=== PATIENT | female | born 1990 | race Hispanic/Latino ===

== ENCOUNTER 2019-04-23 12:13 | Inpatient (IN) | payer MEDICAID, OTHER ==
[~2019-04-23] VITALS: Ht 162.6 cm; Wt 86.8 kg
[2019-04-23] VITALS (20 sets, daily range): BP systolic 83–143; BP diastolic 39–83
[2019-04-23] MEDS ORDERED: CEFTRIAXONE SODIUM 2 GM VIAL ONE (13:04)
[2019-04-23] MEDS ORDERED: ONDANSETRON HCL 4 MG/2 ML VIAL ONE (13:05)
[2019-04-23 13:06] LABS: ABG BASE EXCESS -5.4 mmol/L (-2.0-3.0); ABG HCO3 15.5 mmol/L (21.0-28.0); ABG OXYGEN SATURATION 97.1 % (95.0-99.0); ABG PCO2 21 mmHg (32-45)
[2019-04-23] MEDS ORDERED: SODIUM CHLORIDE 0.9% 1000ML 3,000 ML IV ONE (13:06)
[2019-04-23 13:35] LABS: BASOPHILS % (AUTO) 0.5 % (0.0-5.0); EOSINOPHILS % (AUTO) 2.3 % (0.0-8.0); HEMATOCRIT 46.2 % (36-48); LYMPHOCYTES % (AUTO) 3.8 % (21.0-51.0); MEAN CORPUSCULAR HEMOGLOBIN 28.5 pg (27.0-33.0); MONOCYTES % (AUTO) 5.3 % (3.0-13.0); NEUTROPHILS % (AUTO) 87.3 % (40.0-77.0); PLATELET COUNT (AUTO) 118 K/uL (130-400); RED BLOOD CELL COUNT(AUTO) 5.19 MIL/uL (4.00-5.50); WHITE BLOOD COUNT (AUTO) 14.1 K/uL (4.8-10.8)
[2019-04-23 13:38] LABS: BILIRUBIN,URINE SMALL (NEGATIVE); COLOR,URINE YELLOW (YELLOW); GLUCOSE, URINE (UA) >=1000 mg/dL (NEGATIVE); KETONES,URINE >=80 mg/dL (NEGATIVE); LEUKOCYTE ESTERASE ,URINE NEGATIVE (NEGATIVE); NITRATE,URINE POSITIVE (NEGATIVE); OCCULT BLOOD,URINE TRACE-INTACT (NEGATIVE); PH,URINE 5.5 (5.0-8.0); PROTEIN,URINE 30 mg/dL (NEGATIVE); UROBILINOGEN,URINE 0.2 mg/dL (0.2-1.0)
[2019-04-23 13:45] LABS: CARBON DIOXIDE 20 mmol/L (21-32); CHLORIDE 94 mmol/L (101-111); CREATININE 1.3 mg/dL (0.5-1.5); GLOMERULAR FILTR. RATE CALC 51 mL/min (>60); POTASSIUM 3.9 mmol/L (3.5-5.1); SODIUM SERUM 134 mmol/L (136-145); UREA NITROGEN, BLOOD 13 mg/dL (7-18)
[2019-04-23 13:52] LABS: INR 1.06 (0.85-1.15); PARTIAL THROMBOPLASTIN TIME 34.3 SEC (26.3-35.5); PROTHROMBIN TIME 11.1 SEC (9.6-11.6)
[2019-04-23 13:54] LABS: ALANINE AMINOTRANSFERASE 29 U/L (12-78); ASPARTATE AMINOTRANSFERASE 17 U/L (10-37); BILIRUBIN,TOTAL 1.2 mg/dL (0.2-1.0); CREATINE KINASE, TOTAL 17 U/L (21-232); MYOGLOBIN 23 ng/mL (10-92); TOTAL PROTEIN, SERUM 7.6 g/dL (6.0-8.3); TROPONIN I < 0.04 ng/mL (0.00-0.06)
[2019-04-23 13:56] LABS: APPEARANCE,URINE HAZY (CLEAR)
[2019-04-23 14:00] LABS: AMORPHOUS SEDIMENT,UR Few /LPF (None Seen); BACTERIA,URINE Few /HPF (None Seen); RBC,URINE 0-1 /HPF (0-1); SQUAMOUS EPITHELIAL CELL,UR Rare /HPF (0-2)
[2019-04-23 14:05] LABS: ALBUMIN 2.6 g/dL (3.5-5.0)
[2019-04-23 14:12] LABS: GLUCOSE,RANDOM 435 mg/dL (70-105)
[2019-04-23] MEDS ORDERED: MORPHINE SULFATE 2 MG/ML 1ML SYG ONE (14:12)
[2019-04-23] MEDS ORDERED: ACETAMINOPHEN 650 MG SUPPOSITORY RC ONE (14:19)
[2019-04-23] MEDS ORDERED: SODIUM CHLORIDE 0.9% 1000ML 1,000 ML IV SCH (14:36)
[2019-04-23] MEDS ORDERED: LACTULOSE 20 GM/30 ML UDCUP PO PRN ×2 (14:45→19:00)
[2019-04-23] MEDS ORDERED: CEFTRIAXONE SODIUM 1 GM IV SCH (14:45)
[2019-04-23] MEDS ORDERED: ONDANSETRON HCL 4 MG/2 ML VIAL IV PRN (14:45)
[2019-04-23 17:13] LABS: AMPHET/METH SCREEN,URINE NEGATIVE (NEGATIVE); BARBITURATE SCREEN, URINE NEGATIVE (NEGATIVE); BENZODIAZEPINES SCREEN,URINE POSITIVE (NEGATIVE); CANNABINOID SCREEN,URINE POSITIVE (NEGATIVE); COCAINE SCREEN,URINE NEGATIVE (NEGATIVE); OPIATE SCREEN,URINE NEGATIVE (NEGATIVE); PHENCYCLIDINE SCREEN,URINE NEGATIVE (NEGATIVE)
--- NOTE | 2019-04-23 17:45 | NUR ---
RECEIVED PATIENT FROM ER AND PT HAS BEEN C/O PAIN AND HAS BEEN ADVISED OF ORDERS TO BE OBTAINED FROM ICU CONSULT DOCTOR AND DR. GARCIA HAS BEEN ADVISED OF CONSULT.
[2019-04-23] MEDS ORDERED: ACETAMINOPHEN 325 MG TAB PO PRN (19:00)
[2019-04-23] MEDS ORDERED: LABETALOL 20 MG/4 ML DISP.SYRIN IV PRN (19:00)
[2019-04-23] MEDS ORDERED: ZOLPIDEM TARTRATE 5 MG TAB PO PRN (19:00)
[2019-04-23] MEDS ORDERED: HYDRALAZINE HCL 20 MG/ML VIAL IV PRN (19:00)
--- NOTE | 2019-04-23 19:30 | NUR ---
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
[2019-04-23] MEDS: SODIUM CHLORIDE 0.9% 1000ML 1,000 ML IV SCH ×2 (19:36→20:00)
[2019-04-23] MEDS: MORPHINE SULFATE 2 MG/ML 1ML SYG IVP PRN (19:59)
[2019-04-23] MEDS: FAMOTIDINE/PF 20 MG/2 ML VIAL IV SCH (20:02)
[2019-04-23] MEDS: ACETAMINOPHEN 325 MG TAB PO PRN (20:05)
[2019-04-23] MEDS: INSULIN REGULAR, HUMAN 3ML 100 UNIT in SODIUM CHLORIDE 0.9% 99 ML IV PRN ×2 (20:10)
[2019-04-23 20:46] LABS: ALBUMIN 2.2 g/dL (3.5-5.0); BILIRUBIN,TOTAL 0.7 mg/dL (0.2-1.0); MAGNESIUM 1.9 mg/dL (1.80-2.40); POTASSIUM 3.8 mmol/L (3.5-5.1); TOTAL PROTEIN, SERUM 6.5 g/dL (6.0-8.3)
[2019-04-24] VITALS (24 sets, daily range): BP systolic 92–138; BP diastolic 39–77
[2019-04-24] MEDS: DEXTROSE 5 %-0.45 % NACL 1,000 ML IV PRN ×3 (00:25→19:05)
[2019-04-24] MEDS: SODIUM CHLORIDE 0.9% 1000ML 1,000 ML IV SCH ×2 (00:36→05:36)
[2019-04-24] MEDS: MORPHINE SULFATE 2 MG/ML 1ML SYG IVP PRN ×5 (01:38→19:53)
[2019-04-24] MEDS: ACETAMINOPHEN 325 MG TAB PO PRN ×3 (02:20→19:52)
--- NOTE | 2019-04-24 02:32 | NUR ---
UPDATE 0200 RECEIVED CALL OF BLOOD CULTURES POSITIVE X2 GRAM NEG [facility] ENVIRONMENTAL DEPARTMENT MANAGER JEREMI ANGELO NOTIFIED OF BLOOD CULTURE RESULTS, LAB RESULTS, PT CONDITION, MEDS RECEIVED, ANTIBIOTIC CURRENTLY ON, V/S WITH PT HAVING FEVERS. NEW ORDERS RECEIVED AND CARRIED OUT.
[2019-04-24 04:18] LABS: BASOPHILS % (AUTO) 0.1 % (0.0-5.0); EOSINOPHILS % (AUTO) 2.8 % (0.0-8.0); HEMATOCRIT 33.9 % (36-48); LYMPHOCYTES % (AUTO) 4.8 % (21.0-51.0); MEAN CORPUSCULAR HEMOGLOBIN 28.8 pg (27.0-33.0); MEAN CORPUSCULAR HGB CONC 32.7 g/dL (32.0-36.0); MEAN CORPUSCULAR VOLUME 87.8 fL (79-99); MONOCYTES % (AUTO) 9.1 % (3.0-13.0); NEUTROPHILS % (AUTO) 82.5 % (40.0-77.0); PLATELET COUNT (AUTO) 84 K/uL (130-400); RED BLOOD CELL COUNT(AUTO) 3.86 MIL/uL (4.00-5.50); RED CELL DISTRIBUTION WIDTH 12.2 % (11.0-15.5); WHITE BLOOD COUNT (AUTO) 8.1 K/uL (4.8-10.8)
[2019-04-24 04:24] LABS: HEMOGLOBIN A1C 11.6 % (4.0-6.0)
[2019-04-24] MEDS: ZOSYN 3.375GM+NS 50ML 50 ML IV SCH ×3 (04:34→19:05)
[2019-04-24 04:43] LABS: ALBUMIN 1.9 g/dL (3.5-5.0); BILIRUBIN,TOTAL 0.7 mg/dL (0.2-1.0); CREATININE 0.9 mg/dL (0.5-1.5); MAGNESIUM 2.8 mg/dL (1.80-2.40); POTASSIUM 3.3 mmol/L (3.5-5.1); THYROID STIMULATING HORMONE 0.6 uIU/mL (0.36-3.74); TOTAL PROTEIN, SERUM 5.9 g/dL (6.0-8.3)
[2019-04-24] MEDS ORDERED: DEXTROSE 10%-WATER 1,000 ML IV SCH (08:15)
[2019-04-24 08:28] LABS: BILIRUBIN,TOTAL 0.6 mg/dL (0.2-1.0); CREATININE 0.9 mg/dL (0.5-1.5); MAGNESIUM 2.1 mg/dL (1.80-2.40); POTASSIUM 3.5 mmol/L (3.5-5.1); TOTAL PROTEIN, SERUM 6.3 g/dL (6.0-8.3)
[2019-04-24] MEDS ORDERED: POTASSIUM CHLORIDE 20MEQ/100ML 100 ML IV PRN (08:30)
[2019-04-24] MEDS ORDERED: POTASSIUM CHLORIDE 20 MEQ ERTAB PO PRN (08:30)
[2019-04-24 08:46] LABS: ABG BASE EXCESS -2.1 mmol/L (-2.0-3.0); ABG HCO3 20.1 mmol/L (21.0-28.0); ABG OXYGEN SATURATION 91.9 % (95.0-99.0); ABG PCO2 29 mmHg (32-45)
[2019-04-24] MEDS: ONDANSETRON HCL 4 MG/2 ML VIAL IVP PRN ×2 (08:57→16:22)
[2019-04-24] MEDS: FAMOTIDINE/PF 20 MG/2 ML VIAL IV SCH ×2 (09:31→19:51)
[2019-04-24] MEDS: POTASSIUM CHLORIDE 10% ELIXIR 20 MEQ/15 ML UDCUP PO PRN ×4 (10:16→16:22)
[2019-04-24] MEDS: KETOROLAC TROMETHAMINE 15MG/ML IV PRN ×2 (10:16→16:23)
[2019-04-24 14:25] LABS: ALBUMIN 1.8 g/dL (3.5-5.0); BILIRUBIN,TOTAL 0.8 mg/dL (0.2-1.0); CREATININE 0.9 mg/dL (0.5-1.5); MAGNESIUM 2.2 mg/dL (1.80-2.40); POTASSIUM 3.5 mmol/L (3.5-5.1); TOTAL PROTEIN, SERUM 5.7 g/dL (6.0-8.3)
--- NOTE | 2019-04-24 16:03 | NUR ---
DC PLAN VISITED WITH PATIENT. PATIENT LIVES WITH CHILDREN 9-5 -1. ASKED WHO THEY WERE STAYING WITH [facility]. PATIENT HAS NO SERVICES OR DME'S. FEELS SAFE TO RETURN HOME. SAYS SHE GOES TO [facility] FOR MEDICAL NEEDS. Addendum: 04/24/19 at 1607 by YULIYA LAGOS RN CM Amended: Links added.
[2019-04-24] MEDS: INSULIN REGULAR, HUMAN 3ML 100 UNIT in SODIUM CHLORIDE 0.9% 99 ML IV PRN ×2 (20:39)
[2019-04-24 20:42] LABS: ALBUMIN 2.1 g/dL (3.5-5.0); BILIRUBIN,TOTAL 0.9 mg/dL (0.2-1.0); CREATININE 0.9 mg/dL (0.5-1.5); MAGNESIUM 2.3 mg/dL (1.80-2.40); POTASSIUM 4.1 mmol/L (3.5-5.1); TOTAL PROTEIN, SERUM 6.9 g/dL (6.0-8.3)
[2019-04-24] MEDS ORDERED: SODIUM CHLORIDE 0.9% 1000ML 1,000 ML IV SCH (22:17)
[2019-04-25] VITALS (17 sets, daily range): BP systolic 106–150; BP diastolic 45–90
[2019-04-25] MEDS: MORPHINE SULFATE 2 MG/ML 1ML SYG IVP PRN (01:34)
[2019-04-25] MEDS: ZOSYN 3.375GM+NS 50ML 50 ML IV SCH ×3 (03:18→18:01)
[2019-04-25 03:33] LABS: BASOPHILS % (AUTO) 0.2 % (0.0-5.0); EOSINOPHILS % (AUTO) 1.2 % (0.0-8.0); HEMATOCRIT 28.9 % (36-48); LYMPHOCYTES % (AUTO) 8.1 % (21.0-51.0); MEAN CORPUSCULAR HGB CONC 33.6 g/dL (32.0-36.0); MEAN CORPUSCULAR VOLUME 86.5 fL (79-99); MONOCYTES % (AUTO) 8.1 % (3.0-13.0); NEUTROPHILS % (AUTO) 80.5 % (40.0-77.0); PLATELET COUNT (AUTO) 63 K/uL (130-400); RED BLOOD CELL COUNT(AUTO) 3.34 MIL/uL (4.00-5.50); RED CELL DISTRIBUTION WIDTH 12.1 % (11.0-15.5); WHITE BLOOD COUNT (AUTO) 5.7 K/uL (4.8-10.8)
[2019-04-25 03:48] LABS: ALBUMIN 1.6 g/dL (3.5-5.0); BILIRUBIN,TOTAL 0.8 mg/dL (0.2-1.0); CREATININE 0.8 mg/dL (0.5-1.5); PHOSPHORUS 0.6 mg/dL (2.5-4.9); TOTAL PROTEIN, SERUM 5.4 g/dL (6.0-8.3)
[2019-04-25] MEDS: LIDOCAINE HCL-MPF 1% 2ML VIAL IV PRN ×2 (04:02→05:23)
[2019-04-25] MEDS: POTASSIUM CHLORIDE 10MEQ/100ML 100 ML IV PRN ×2 (04:03→05:24)
[2019-04-25] MEDS: INSULIN LISPRO 100 UNIT/ML 3ML SQ SCH ×7 (07:30→21:00)
[2019-04-25] MEDS: POTASSIUM PHOSPHATE 30 MMOL in SODIUM CHLORIDE 0.9% 250 ML IV SCH ×2 (08:23→16:07)
[2019-04-25] MEDS: FAMOTIDINE/PF 20 MG/2 ML VIAL IV SCH ×2 (08:23→21:07)
[2019-04-25] MEDS: NEUTRA-PHOS PACKET 1 EACH PO SCH ×2 (08:23→21:08)
[2019-04-25] MEDS: KETOROLAC TROMETHAMINE 15MG/ML IV PRN ×3 (08:43→21:08)
[2019-04-25] MEDS: ONDANSETRON HCL 4 MG/2 ML VIAL IVP PRN ×3 (08:50→21:08)
[2019-04-25 09:58] LABS: ABG BASE EXCESS -1.4 mmol/L (-2.0-3.0); ABG HCO3 20.3 mmol/L (21.0-28.0); ABG OXYGEN SATURATION 97.8 % (95.0-99.0); ABG PCO2 27 mmHg (32-45)
--- NOTE | 2019-04-25 10:00 | NUR ---
DR GARCIA NOTIFIED ABOUT LATEST ABG RESULTS, NO NEW ORDERS GIVEN AT THIS TIME
--- NOTE | 2019-04-25 10:25 | NUR ---
DISCONTINUED CARRANZA CATHETER INTACT.
--- NOTE | 2019-04-25 10:35 | NUR ---
REPORT GIVEN TO HENRIK ROMANO RN. TRANSFERRED TO ROOM 221 VIA WHEELCHAIR.
[2019-04-25] MEDS ORDERED: COMPOUND IV REFRIGERATED 1 EACH IVSOLN MISC PRN (12:15)
[2019-04-25] MEDS: ACETAMINOPHEN 325 MG TAB PO PRN (12:49)
[2019-04-25 14:21] LABS: ALBUMIN 1.7 g/dL (3.5-5.0); BILIRUBIN,TOTAL 0.8 mg/dL (0.2-1.0); CREATININE 0.8 mg/dL (0.5-1.5); MAGNESIUM 1.8 mg/dL (1.80-2.40); POTASSIUM 3.4 mmol/L (3.5-5.1); TOTAL PROTEIN, SERUM 5.7 g/dL (6.0-8.3)
[2019-04-25] MEDS: POTASSIUM CHLORIDE 10% ELIXIR 20 MEQ/15 ML UDCUP PO PRN (16:07)
--- NOTE | 2019-04-25 17:33 | NUR ---
PT. C/O STERNAL CHEST PAIN 01/22. TACHYPNEIC RR-32/MIN. O2 SAT. 99% ON ROOM AIR. NOTIFIED Robinson BLOOD NP. ORDERS RECEIVED. PT.'S FAMILY MEMBERS AT BEDSIDE. CALL LIGHT WITHIN PT.'S REACH, VERBALIZED ABILITY TO USE.
[2019-04-25] MEDS ORDERED: MORPHINE SULFATE 2 MG/ML 1ML SYG IVP STA (17:34)
[2019-04-25] MEDS ORDERED: NITROGLYCERIN 1GM/1 INCH PACKET TD SCH (17:45)
[2019-04-25] MEDS: HYDROCODONE/ACETAMINOPHEN 5/325 MG TAB PO PRN ×2 (19:30→21:08)
[2019-04-25] MEDS ORDERED: MORPHINE SULFATE 2 MG/ML 1ML SYG IVP PRN (20:30)
[2019-04-25] MEDS ORDERED: INSULIN GLARGINE 100 UNITS/ML 10 ML VIAL SQ SCH (21:00)
[2019-04-26 00:02] VITALS: BP 105/52
[2019-04-26] MEDS: KETOROLAC TROMETHAMINE 15MG/ML IV PRN ×2 (01:07→11:12)
[2019-04-26] MEDS: HYDROCODONE/ACETAMINOPHEN 5/325 MG TAB PO PRN (01:11)
[2019-04-26] MEDS: ZOSYN 3.375GM+NS 50ML 50 ML IV SCH ×2 (03:19→11:07)
[2019-04-26 03:52] VITALS: BP 123/83
[2019-04-26 04:51] LABS: BASOPHILS % (AUTO) 0.2 % (0.0-5.0); EOSINOPHILS % (AUTO) 1.5 % (0.0-8.0); HEMATOCRIT 29.1 % (36-48); LYMPHOCYTES % (AUTO) 14.6 % (21.0-51.0); MEAN CORPUSCULAR HEMOGLOBIN 28.8 pg (27.0-33.0); MEAN CORPUSCULAR VOLUME 87.4 fL (79-99); MONOCYTES % (AUTO) 9.7 % (3.0-13.0); NEUTROPHILS % (AUTO) 73.1 % (40.0-77.0); PLATELET COUNT (AUTO) 76 K/uL (130-400); RED BLOOD CELL COUNT(AUTO) 3.33 MIL/uL (4.00-5.50); RED CELL DISTRIBUTION WIDTH 12.3 % (11.0-15.5); WHITE BLOOD COUNT (AUTO) 5.5 K/uL (4.8-10.8)
[2019-04-26 05:07] LABS: ALBUMIN 1.7 g/dL (3.5-5.0); BILIRUBIN,TOTAL 0.6 mg/dL (0.2-1.0); CREATININE 0.6 mg/dL (0.5-1.5); MAGNESIUM 2.3 mg/dL (1.80-2.40); PHOSPHORUS 1.9 mg/dL (2.5-4.9); POTASSIUM 3.8 mmol/L (3.5-5.1); TOTAL PROTEIN, SERUM 5.7 g/dL (6.0-8.3)
[2019-04-26] MEDS: INSULIN LISPRO 100 UNIT/ML 3ML SQ SCH ×4 (05:43→11:16)
[2019-04-26] MEDS: NEUTRA-PHOS PACKET 1 EACH PO SCH (07:19)
[2019-04-26 07:30] VITALS: BP 128/74
[2019-04-26] MEDS: FAMOTIDINE/PF 20 MG/2 ML VIAL IV SCH (07:39)
[2019-04-26 09:23] LABS: ABG HCO3 20.2 mmol/L (21.0-28.0); ABG OXYGEN SATURATION 96.2 % (95.0-99.0); ABG PCO2 28 mmHg (32-45)
--- NOTE | 2019-04-26 11:01 | NUR ---
CM NOTE CM was notified by nursing in regards to difficulty in obtaining diabetic medications. Pt states she currently follows up at [facility]. CM provided information regarding [facility] program to assist with diabetes management. No other questions or concerns verbalized.
[2019-04-26 11:30] VITALS: BP 105/67
--- NOTE | 2019-04-26 13:20 | NUR ---
Em QUEZADA OIL WELL GUN PERFORATOR OPERATOR, IN ROOM SPEAKING WITH PT. RE:MEDICAL CONDITION, URINE AND BLOOD CULTURES AND MEDICATION REGIMEN. PT. STATES SHE WILL BE LEAVING AMA.
== END 2019-04-26 13:40 | disposition left against medical advice (07) | DRG 871 ==
LOC: EDH 12:13 → EDHIP 12:14 → 2BH 17:55 → 2DH 04-25 10:39
PROVIDERS: ADMIT Internal Medicine; ATTEND Internal Medicine
DX: A41.50 Gram-negative sepsis, unspecified (principal); E11.10 Type 2 diabetes mellitus with ketoacidosis without coma; E43 Unspecified severe protein-calorie malnutrition; E87.1 Hypo-osmolality and hyponatremia; N13.6 Pyonephrosis; N17.9 Acute kidney failure, unspecified; D69.6 Thrombocytopenia, unspecified; E66.9 Obesity, unspecified; E86.1 Hypovolemia; I10 Essential (primary) hypertension; R65.20 Severe sepsis without septic shock; F12.90 Cannabis use, unspecified, uncomplicated; F13.90 Sedative, hypnotic, or anxiolytic use, unspecified, uncomplicated; Z53.29 Procedure and treatment not carried out because of patient's decision for other reasons; Z68.32 Body mass index [BMI] 32.0-32.9, adult; Z87.442 Personal history of urinary calculi
CPT/HCPCS: 36415; 36600; 71045; 74176; 80053; 80061; 80305; 81001; 81025; 82435; 82550; 82803; 82947; 82948; 83036; 83605; 83735; 83874; 84100; 84132; 84145; 84295; 84443; 84484; 85018; 85025; 85610; 85730; 87040; 87077; 87088; 87186; 93005; 99291; A4344; G0378; J0696; J1815; J1885; J2405; J2543; J3490; J7030; J7042

== ENCOUNTER 2019-04-27 10:10 | Emergency (ER) | payer SELFPAY | END 2019-04-27 10:50 | disposition left against medical advice (07) | LOC: EDH 10:10 | DX: R10.9 Unspecified abdominal pain (principal); E11.9 Type 2 diabetes mellitus without complications; Z98.890 Other specified postprocedural states; Z53.21 Procedure and treatment not carried out due to patient leaving prior to being seen by health care provider ==